=== PATIENT | male | born 1965 | race Caucasian/White ===

== ENCOUNTER 2019-09-22 08:55 | Day surgery (SDC) | payer OTHER ==
[2019-09-22] MEDS ORDERED: LIDOCAINE HCL 1% 20ML VIAL (Pyxis) INJ ONE (09:52)
[2019-09-22] MEDS ORDERED: FENTANYL CITRATE/PF 50MCG/ML 2ML VIAL ONE (09:52)
[2019-09-22] MEDS ORDERED: IODIXANOL 320MG/ML 100 ML BOTTLE IV ONE (09:53)
[2019-09-22] MEDS ORDERED: MIDAZOLAM HCL 2 MG/2 ML VIAL ONE (09:53)
[2019-09-22] MEDS ORDERED: ASPI-864 MT (10:14)
[2019-09-22] MEDS ORDERED: SITA1TAB6 MT (10:14)
[2019-09-22] MEDS ORDERED: LISI10TA5 MT (10:14)
[2019-09-22] MEDS ORDERED: NITROGLYCERIN 50MCG/ML 10ML VIAL (CATH LAB) IV ONE (11:00)
[2019-09-22] MEDS ORDERED: ACETAMINOPHEN 325MG TABLET PO PRN (11:00)
[2019-09-22] MEDS ORDERED: NICARDIPINE 100MCG/ML 10ML VIAL (CATH LAB) IV ONE (11:00)
[2019-09-22] MEDS ORDERED: HEPARIN SODIUM 1,000 UNIT/1ML VIAL IV ONE (11:00)
[2019-09-22] MEDS ORDERED: ONDANSETRON HCL 4MG/2ML INJ IV PRN (11:00)
== END 2019-09-22 14:00 | disposition home or self-care (01) ==
LOC: CCL 08:55
PROVIDERS: ATTEND Specialist
DX: R06.00 Dyspnea, unspecified (principal); I25.10 Atherosclerotic heart disease of native coronary artery without angina pectoris; I10 Essential (primary) hypertension; E11.9 Type 2 diabetes mellitus without complications; E66.09 Other obesity due to excess calories; E78.5 Hyperlipidemia, unspecified; F17.200 Nicotine dependence, unspecified, uncomplicated; Z79.82 Long term (current) use of aspirin; Z79.899 Other long term (current) drug therapy
CPT/HCPCS: 82962; 93458; 99152; C1769; C1893; J1644; J2250; J3010; J3490; Q9967